=== PATIENT | female | born 1955 | race Caucasian/White ===

== ENCOUNTER 2021-02-03 12:15 | Inpatient (IN) | payer MEDICARE, OTHER ==
[2021-02-03 13:27] LABS: INR 1.09 (0.9-1.2); PROTHROMBIN TIME 13.4 SECONDS (11.4-13.6)
[2021-02-03 13:28] LABS: PTT 32.9 SECONDS (22.2-34.7)
[2021-02-03 13:29] LABS: D-DIMER 2.21 ug/mLFEU (0.00-0.41)
[2021-02-03 14:49] LABS: LACTIC ACID 1.4 mmol/L (0.4-1.9)
[2021-02-03 14:51] LABS: BILIRUBIN 1+ mg/dL (NEGATIVE); BLOOD TRACE-INTACT Ery/uL (NEGATIVE); GLUCOSE (U) NORMAL (NORMAL); LEUKOCYTES NEGATIVE Leu/uL (NEGATIVE); NITRITE NEGATIVE (NEGATIVE); PROTEIN 2+ mg/dL (NEGATIVE); SPECIFIC GRAVITY >=1.030 (1.001-1.030)
[2021-02-03 14:52] LABS: CLARITY CLEAR (CLEAR); COLOR AMBER (YELLOW)
[2021-02-03 14:56] LABS: BACTERIA TRACE; URINARY WBC RARE
[2021-02-03 15:00] LABS: ALBUMIN 3.2 g/dL (3.4-5.0); BILIRUBIN - TOTAL 0.5 mg/dL (0.2-1.0); C-REACTIVE PROTEIN 11.1 mg/dL (<=0.90); CREATININE 0.77 mg/dL (0.51-0.95); GLOBULIN (CALCULATION) 4.5 g/dL; MAGNESIUM 1.9 mg/dL (1.8-2.4); POTASSIUM 3.2 mmol/L (3.5-5.1); TOTAL PROTEIN 7.7 g/dL (6.4-8.2)
[2021-02-03 16:06] LABS: BASOPHIL 0.2 % (0-2); EOSINOPHIL 0 % (0-7); HCT 43.8 % (37.0-47.0); HGB 14.3 g/dl (12.5-16.0); LYMPHOCYTE 18.9 % (15-48); MCH 30.6 pg (25.0-31.0); MCHC 32.6 g/dL (32.0-36.0); MCV 93.8 fL (78.0-100.0); MONOCYTE 8.3 % (0-12); MPV 12.1 fL (6.0-9.5); NEUTROPHIL 71.4 % (41-80); NRBC 0; PLT 159 K/uL (150-400); RBC 4.67 M/uL (4.20-5.40); RDW 13.2 % (11.5-14.0); WBC 4.8 K/uL (4.0-10.5)
[2021-02-03 16:32] LABS: IRON % SATURATION 11.2 %SAT (20-50)
[2021-02-03] MEDS ORDERED: PRILOSEC20 MG PO (17:40)
[2021-02-03] MEDS ORDERED: CELEXA20 MG PO (17:41)
[2021-02-03] MEDS ORDERED: COREG 6.25MG6.25 MG PO (17:42)
[2021-02-03] MEDS ORDERED: VENTOLIN HFA IN18 GM INH (17:43)
[2021-02-03] MEDS ORDERED: REPATHA SY140 MG/1 M IJ (18:12)
[2021-02-03] MEDS ORDERED: FLONASE ALLER15.8 ML (18:12)
[2021-02-03] MEDS ORDERED: ZOFRAN4 M1 SL (18:14)
[2021-02-04 06:28] LABS: BASOPHIL 0 % (0-2); EOSINOPHIL 0 % (0-7); HCT 34.3 % (37.0-47.0); HGB 12.4 g/dl (12.5-16.0); LYMPHOCYTE 31.9 % (15-48); MCHC 36.2 g/dL (32.0-36.0); MCV 96.9 fL (78.0-100.0); MPV 11.8 fL (6.0-9.5); NEUTROPHIL 56.6 % (41-80); NRBC 0; PLT 157 K/uL (150-400); RBC 3.54 M/uL (4.20-5.40); RDW 13.7 % (11.5-14.0)
[2021-02-04 07:04] LABS: WBC 1.9 K/uL (4.0-10.5)
[2021-02-04 07:05] LABS: PRO-BNP 226 pg/mL (<125)
[2021-02-04 07:57] LABS: ALBUMIN 2.6 g/dL (3.4-5.0); BILIRUBIN - TOTAL 0.3 mg/dL (0.2-1.0); BUN/CREAT RATIO (CALC) 21.7 RATIO; CREATININE 0.6 mg/dL (0.51-0.95); GLOBULIN (CALCULATION) 4.2 g/dL; TOTAL PROTEIN 6.8 g/dL (6.4-8.2)
[2021-02-05 06:07] LABS: BASOPHIL 0 % (0-2); EOSINOPHIL 0 % (0-7); HCT 34.2 % (37.0-47.0); HGB 11.9 g/dl (12.5-16.0); LYMPHOCYTE 16.8 % (15-48); MCH 33.8 pg (25.0-31.0); MCHC 34.8 g/dL (32.0-36.0); MCV 97.2 fL (78.0-100.0); MONOCYTE 7.5 % (0-12); MPV 11.9 fL (6.0-9.5); NEUTROPHIL 75.3 % (41-80); PLT 180 K/uL (150-400); RBC 3.52 M/uL (4.20-5.40); RDW 13.4 % (11.5-14.0)
[2021-02-05 06:11] LABS: WBC 4.9 K/uL (4.0-10.5)
[2021-02-05 06:26] LABS: ALBUMIN 2.3 g/dL (3.4-5.0); BILIRUBIN - TOTAL 0.2 mg/dL (0.2-1.0); BUN/CREAT RATIO (CALC) 29.6 RATIO; CREATININE 0.54 mg/dL (0.51-0.95); GLOBULIN (CALCULATION) 4.2 g/dL; MAGNESIUM 2.1 mg/dL (1.8-2.4); POTASSIUM 4.2 mmol/L (3.5-5.1); TOTAL PROTEIN 6.5 g/dL (6.4-8.2)
[2021-02-05 07:21] LABS: LYMPHOCYTE(M) 17 % (15-48); MONOCYTE(M) 7 % (0-12); NEUTROPHILS(M) 71 % (41-80); PLATELET ESTIMATE NORMAL; PLATELET MORPHOLOGY NORMAL; TOTAL CELL COUNT 100; VARIANT LYMPHOCYTE 5
[2021-02-06 06:21] LABS: BASOPHIL 0.2 % (0-2); EOSINOPHIL 0 % (0-7); HCT 28.2 % (37.0-47.0); HGB 11.4 g/dl (12.5-16.0); LYMPHOCYTE 14.3 % (15-48); MONOCYTE 6.7 % (0-12); MPV 11.9 fL (6.0-9.5); NEUTROPHIL 78.1 % (41-80); PLT 163 K/uL (150-400); RBC 2.73 M/uL (4.20-5.40); RDW 16.1 % (11.5-14.0); WBC 5.5 K/uL (4.0-10.5)
[2021-02-06 06:39] LABS: ALBUMIN 2.4 g/dL (3.4-5.0); BILIRUBIN - TOTAL 0.2 mg/dL (0.2-1.0); BUN/CREAT RATIO (CALC) 29.7 RATIO; C-REACTIVE PROTEIN 1.3 mg/dL (<=0.90); CREATININE 0.64 mg/dL (0.51-0.95); GLOBULIN (CALCULATION) 3.5 g/dL; MAGNESIUM 2.2 mg/dL (1.8-2.4); PHOSPHORUS 3.1 mg/dL (2.6-4.7); POTASSIUM 4.6 mmol/L (3.5-5.1); TOTAL PROTEIN 5.9 g/dL (6.4-8.2)
[2021-02-06 07:19] LABS: MCH 41.8 pg (25.0-31.0); MCHC 40.4 g/dL (32.0-36.0); MCV 103.3 fL (78.0-100.0)
[2021-02-06 07:24] LABS: BAND 2 % (0-10); LYMPHOCYTE(M) 15 % (15-48); MONOCYTE(M) 7 % (0-12); NEUTROPHILS(M) 73 % (41-80); TOTAL CELL COUNT 100; VARIANT LYMPHOCYTE 3
[2021-02-06 07:25] LABS: PLATELET ESTIMATE INCREASED; PLATELET MORPHOLOGY GIANT
[2021-02-07 05:54] LABS: ALBUMIN 2.4 g/dL (3.4-5.0); BILIRUBIN - TOTAL 0.3 mg/dL (0.2-1.0); BUN/CREAT RATIO (CALC) 35.7 RATIO; CREATININE 0.56 mg/dL (0.51-0.95); GLOBULIN (CALCULATION) 3.8 g/dL; POTASSIUM 4.2 mmol/L (3.5-5.1); TOTAL PROTEIN 6.2 g/dL (6.4-8.2)
[2021-02-07 06:31] LABS: BASOPHIL 0.4 % (0-2); EOSINOPHIL 0 % (0-7); HCT 31.8 % (37.0-47.0); HGB 11.6 g/dl (12.5-16.0); LYMPHOCYTE 17.2 % (15-48); MCHC 36.5 g/dL (32.0-36.0); MONOCYTE 8.4 % (0-12); MPV 12.3 fL (6.0-9.5); NEUTROPHIL 69.3 % (41-80); NRBC 0; PLT 188 K/uL (150-400); RBC 3.23 M/uL (4.20-5.40); RDW 13.2 % (11.5-14.0); WBC 5.1 K/uL (4.0-10.5)
[2021-02-07 06:33] LABS: MCV 98.5 fL (78.0-100.0)
[2021-02-07 06:34] LABS: MCH 35.9 pg (25.0-31.0)
[2021-02-10 06:59] LABS: BASOPHIL 0.5 % (0-2); EOSINOPHIL 0 % (0-7); HCT 40.3 % (37.0-47.0); HGB 13.9 g/dl (12.5-16.0); LYMPHOCYTE 13.6 % (15-48); MCH 32.1 pg (25.0-31.0); MCHC 34.5 g/dL (32.0-36.0); MONOCYTE 10.4 % (0-12); MPV 11.9 fL (6.0-9.5); NEUTROPHIL 70.3 % (41-80); NRBC 0.2; PLT 289 K/uL (150-400); RBC 4.33 M/uL (4.20-5.40); RDW 12.8 % (11.5-14.0); WBC 8.9 K/uL (4.0-10.5)
[2021-02-10 07:00] LABS: MCV 93.1 fL (78.0-100.0)
[2021-02-10 07:50] LABS: ALBUMIN 2.7 g/dL (3.4-5.0); ALKALINE PHOSHATASE 54 U/L (46-116); ALT 57 U/L (14-59); AST 19 U/L (15-37); BILIRUBIN - TOTAL 0.6 mg/dL (0.2-1.0); BUN 17 mg/dL (7-18); BUN/CREAT RATIO (CALC) 29.8 RATIO; CHLORIDE 105 mmol/L (98-107); CO2 (BICARBONATE) 32 mmol/L (21-32); CREATININE 0.57 mg/dL (0.51-0.95); GLOBULIN (CALCULATION) 3.7 g/dL; GLUCOSE 159 mg/dL (74-106); POTASSIUM 4.3 mmol/L (3.5-5.1); TOTAL PROTEIN 6.4 g/dL (6.4-8.2)
[2021-02-10 07:53] LABS: C-REACTIVE PROTEIN < 0.20 mg/dL (<=0.90)
[2021-02-10] MEDS ORDERED: DECADRON6 MG PO (13:05)
[2021-02-10] MEDS ORDERED: LOVENOX40 MG/0.4 SC (13:05)
[2021-02-10] MEDS ORDERED: DIFLUCAN150 MG PO (13:05)
[2021-02-10] MEDS ORDERED: COREG 3.125M3.125 MG PO (13:05)
[2021-02-10] MEDS ORDERED: VENTOLIN HFA IN18 GM INH (13:06)
[2021-02-10] MEDS ORDERED: NORVASC5 MG PO (13:06)
== END 2021-02-10 15:20 | DRG 177 ==
LOC: FER 12:15 → FTCU 15:40
PROVIDERS: Emergency Medicine; Internal Medicine; ADMIT Internal Medicine
PROC: 8E0ZXY6 Isolation (ICD-10-PCS; principal; 2021-02-03)
PROC: XW033E5 Introduction of Remdesivir Anti-infective into Peripheral Vein, Percutaneous Approach, New Technology Group 5 (ICD-10-PCS; 2021-02-03)
DX: U07.1 COVID-19 (principal); J96.01 Acute respiratory failure with hypoxia; J12.82 Pneumonia due to coronavirus disease 2019; Z68.41 Body mass index [BMI] 40.0-44.9, adult; B37.0 Candidal stomatitis; D50.9 Iron deficiency anemia, unspecified; E87.6 Hypokalemia; I10 Essential (primary) hypertension; D70.3 Neutropenia due to infection; E78.00 Pure hypercholesterolemia, unspecified; R00.1 Bradycardia, unspecified; E66.01 Morbid (severe) obesity due to excess calories; Z79.51 Long term (current) use of inhaled steroids; Z79.899 Other long term (current) drug therapy
CPT/HCPCS: 36415; 36600; 71045; 71275; 80053; 81001; 82607; 82728; 82746; 82803; 83540; 83550; 83605; 83735; 83880; 84100; 84145; 84484; 85025; 85379; 85610; 85730; 86140; 87040; 93005; 94640; 94667; 94668; C9399; J0456; J0696; J1100; J1650; J2060; J2405; J2916; J3480; J7050; J8540; Q9967

== ENCOUNTER 2022-05-01 09:42 | Emergency (ER) | payer MEDICARE ==
[~2022-05-01 09:42] MED LIST: CELEXA20 MG PO; COREG 3.125M3.125 MG PO; COREG 6.25MG6.25 MG PO; DECADRON6 MG PO; DIFLUCAN150 MG PO; FLONASE ALLER15.8 ML; LOVENOX40 MG/0.4 SC; NORVASC5 MG PO; PRILOSEC20 MG PO; REPATHA SY140 MG/1 M IJ; VENTOLIN HFA IN18 GM INH; ZOFRAN4 M1 SL
[2022-05-01 11:05] LABS: BASOPHIL 0.5 % (0-2); EOSINOPHIL 2.1 % (0-7); HCT 39.2 % (37.0-47.0); HGB 12.7 g/dl (12.5-16.0); LYMPHOCYTE 20.5 % (15-48); MCH 30.2 pg (25.0-31.0); MCHC 32.4 g/dL (32.0-36.0); MCV 93.1 fL (78.0-100.0); MONOCYTE 8.1 % (0-12); NEUTROPHIL 68.1 % (41-80); NRBC 0; PLT 233 K/uL (150-400); RBC 4.21 M/uL (4.20-5.40); RDW 13.3 % (11.5-14.0); WBC 8.1 K/uL (4.0-10.5)
[2022-05-01 11:23] LABS: BILIRUBIN NEGATIVE (NEGATIVE); BLOOD TRACE-INTACT Ery/uL (NEGATIVE); CLARITY CLEAR (CLEAR); COLOR YELLOW (YELLOW); GLUCOSE (U) NORMAL (NORMAL); LEUKOCYTES NEGATIVE Leu/uL (NEGATIVE); NITRITE NEGATIVE (NEGATIVE); PROTEIN NEGATIVE (NEGATIVE); SPECIFIC GRAVITY 1.015 (1.001-1.030); UROBILINOGEN 0.2 mg/dL (0.2-1.0)
[2022-05-01 11:36] LABS: BACTERIA TRACE; URINARY WBC RARE
[2022-05-01 11:37] LABS: SQUAMOUS EPITHELIAL CELLS RARE
[2022-05-01 11:57] LABS: ALBUMIN 3.6 g/dL (3.4-5.0); ALKALINE PHOSHATASE 108 U/L (46-116); ALT 22 U/L (14-59); AST 16 U/L (15-37); BILIRUBIN - TOTAL 0.3 mg/dL (0.2-1.0); BUN 13 mg/dL (7-18); BUN/CREAT RATIO (CALC) 20.3 RATIO; CHLORIDE 100 mmol/L (98-107); CO2 (BICARBONATE) 31 mmol/L (21-32); CREATININE 0.64 mg/dL (0.51-0.95); GLOBULIN (CALCULATION) 3.9 g/dL; GLUCOSE 144 mg/dL (74-106); TOTAL PROTEIN 7.5 g/dL (6.4-8.2)
[2022-05-01] MEDS ORDERED: ANTIVERT25 MG PO (13:22)
[2022-05-01] MEDS ORDERED: ONDANSETRON ODT4 MG PO (13:22)
[2022-05-01] MEDS ORDERED: AMOXICILLIN875 MG PO (13:22)
== END 2022-05-01 13:54 | disposition home or self-care (01) ==
LOC: FER 09:42
PROVIDERS: Emergency Medicine
DX: H81.391 Other peripheral vertigo, right ear (principal); H83.01 Labyrinthitis, right ear; H65.91 Unspecified nonsuppurative otitis media, right ear; Z88.8 Allergy status to other drugs, medicaments and biological substances; Z28.310 Unvaccinated for COVID-19
CPT/HCPCS: 36415; 70450; 71045; 80053; 81001; 83735; 84484; 85025; 93005; J2060; J2405